=== PATIENT | male | born 2000 | race Caucasian/White ===

== ENCOUNTER 2025-03-06 18:57 | Emergency (ER) | payer SELFPAY ==
[2025-03-06 19:04] VITALS: BP 142/79; PULSE 110; RESP 18; TEMP 36.9; O2SAT 96
--- NOTE | 2025-03-06 19:29 | ED.GENADUL_ITS ---
Discharge Plan Disposition Patient Disposition: Home Condition: Stable Discharge Details Clinical Impression: Cellulitis of left lower leg ED Provider: Nani Waller Home Meds and New Rx's Prescriptions: New cephalexin 500 mg capsule 500 mg PO QID 7 Days Qty: 28 0RF Discharge Instructions Instructions: Cellulitis (Skin Infection), Adult ED Additional Instructions: You were seen in the emergency department today for evaluation of skin changes just under your left knee, concerning for skin and soft tissue infection. In our department your full physical examination performed and do not have any evidence at this time or spread to the knee joint itself. You received your first doses of antibiotics, and should use the topical ointment 3 times per day. The rest of your antibiotics have been sent to your pharmacy, please take all of them until they are gone, even if you start to feel better. Please use therapeutic dosing of Tylenol (acetaminophen) & Advil (ibuprofen) in an alternating fashion as follows: Take 1000mg of Tylenol every 6 hours without missing doses- that is 4 times per day. Snf in between the Tylenol doses, take 600mg of Advil also on a 6 hour schedule, that is also 4 times per day. With this strategy, you will be taking something for fever/pain as often as every 3 hours. The daily maximum dosing of Tylenol is 4000mg, and the daily maximum dosing of Advil is 2400mg. Please note that some common cold medications & prescription pain medications may contain acetaminophen and you need to read OTC drug labels and factor that in to maximum daily doses. As you are traveling, you will need to return to the emergency department if you have any change or worsening of your skin changes after 48 hours of antibiotic therapy, if you develop a fever, are unable to move your knee joint, or have any other concerns. Please follow-up with your primary care provider in the next few days to discuss this visit and any symptoms that change, worsen, or persist. Thank you for allowing us to be part of your care. HPI General Mode of arrival: ambulatory . Date/Time Provider Initiated Documentation: 03/06/25 19:01 . Limitations to Documentation: no limitations . Information obtained by: patient and old records reviewed . HPI Narrative: This is a 24-year-old male patient without significant past medical history presenting for evaluation of a rash just below his left knee. The patient reports that this rash started about 4 days ago. He had noted some dry skin on his knee, tried some Aquaphor without improvement, and then noted a [employer] [place] of red, raised, warm tissue just inferior to his left knee. He reports that the skin itself is painful, he has been able to range his knee without significant pain, though pulling on the skin does reproduce his discomfort. No medications for management of pain at home, no history of skin infections or IVDU. The patient resides in [place], is here for work for another 2-1/2 weeks before he returns home. Related Data Home Medications Medication Instructions Recorded Confirmed cephalexin 500 mg capsule 500 mg PO QID 7 days #28 cap s 03/06/25 Previous Rx's Medication Instructions Recorded cephalexin 500 mg capsule 500 mg PO QID 7 days #28 cap s 03/06/25 Allergies Allergy/AdvReac Type Severity Reaction Status Date / Time No Known Allergies Allergy Unverified 03/06/25 19:11 General Stated Complaint: RashLesion ASA: 4 Exam Narrative Exam Narrative: Gen: Awake and alert, in no apparent distress HEENT: Non-icteric sclera Neck: Supple Lungs: No apparent respiratory distress, normal respiratory effort. CV: Appears well perfused, heart rate in triage initially elevated, likely due to the patient's long brisk walk from the parking lot to the waiting room. On recheck his heart is with regular rate and rhythm, strong distal pulses Abdomen: Non-distended MSK: Moves 4 extremities without apparent limitation in ROM. There is no pain with passive range of motion of the knee, no tenderness to palpation overlying the patella, medial or lateral joint line, or popliteal fossa. Strong TP pulses on the affected left leg. Skin: the left knee has an approximately 7 cm circular area of indurated, red, and warm skin. The center of this area does have hyperkeratotic changes, skin changes are below the level of the knee joint. No purulence or drainage noted Neuro: Normal Gait, no obvious focal deficits or facial asymmetry. Speaks in f ull, clear sentences. Psych: Appropriate for situation. Course Vital Signs Vital signs: Vital Signs Temperature 36.9 C 03/06/25 19:04 Pulse 110 H 03/06/25 19:04 Respiratory Rate 18 03/06/25 19:04 Blood Pressure 142/79 H 03/06/25 19:04 Pulse Oximetry 96 03/06/25 19:04 Temperature 36.9 C 03/06/25 19:04 Temperature Source Oral 03/06/25 19:04 Pulse 110 H 03/06/25 19:04 Respiratory Rate 18 03/06/25 19:04 Blood Pressure 142/79 H 03/06/25 19:04 Pulse Oximetry 96 03/06/25 19:04 Oxygen Delivery Method Room Air 03/06/25 19:04 Oxygen Flow Rate 0 03/06/25 19:04 Medical Decision Making This is a 24-year-old male patient presenting for evaluation of skin changes of the left knee. My differential includes but is not limited to cellulitis, erysipelas, less likely abscess. Certainly considered contact dermatitis, tinea corporis. There is no evidence on my physical examination for septic arthritis, gout, or other joint space abnormalities. The patient is systemically well and I have a low concern for sepsis, bacteremia, NSTI. I will provide the patient with a short course of Bactroban, as well as a prescription for cephalexin. I counseled the patient extensively on return precautions, as he does not have access to a primary care provider in this area. At this time, the patient has had a full medical evaluation and is safe for discharge to home. They are hemodynamically stable, ambulatory, and tolerating PO. They are understanding of the follow-up plan and return precautions. They left our facility without incident. Nani Waller MD [facility] All Active Problems (Updated 03/06/25 @ 19:30 by Nani Waller MD) Cellulitis of left lower leg (Acute) Social History Smoking/Tobacco Use Status: Former Tobacco Use Smoking risk assessment performed?: Yes Alcohol Intake: current Alcohol Intake frequency: holidays/special occasions only Substance use type: does not use
[2025-03-06 19:43] VITALS: PULSE 88
[2025-03-06] MEDS: Cephalexin 500 MG CAP, 4 CAPS/BTL PO (19:57)
[2025-03-06] MEDS: Mupirocin 2% Oint. 22 GM TUBE TP (19:57)
[2025-03-06 20:01] VITALS: PULSE 88; RESP 18; O2SAT 99
== END 2025-03-06 20:01 | disposition home or self-care (01) ==
LOC: ER 20:05
PROVIDERS: Emergency Provider Emergency Medicine
DX: L03.116 Cellulitis of left lower limb (principal)
CPT/HCPCS: 99283; 99284